=== PATIENT | male | born 1990 | race Caucasian/White ===

== ENCOUNTER 2020-04-06 17:14 | Outpatient (REF) | payer BC, SELFPAY | END 2020-04-06 17:15 | disposition home or self-care (01) | LOC: HO.LAB 17:14 | PROVIDERS: Visit Provider Internal Medicine | DX: Z20.822 Contact with and (suspected) exposure to COVID-19 (principal) | CPT/HCPCS: 36415; C9803; U0003 ==

== ENCOUNTER 2022-09-21 08:32 | Outpatient (REF) | payer BC, SELFPAY ==
[2022-09-21 08:42] LABS: MANUAL DIFF FLAG NO
[2022-09-21 09:16] LABS: Basophils Percent Auto 0.2 % (0-2); Eosinophils Absolute Auto 0.2 X10*3/uL (0.0-0.4); Hematocrit 45.7 % (42.0-52.0); Hemoglobin 16.1 g/dl (14.0-18.0); Imm Gran Abs Auto 0.01 X10*3/uL (0.00-0.03); Imm Gran Pct Auto 0.2 % (0.0-0.4); Lymphocytes Absolute Auto 1.6 X10*3/uL (1.2-4.9); Lymphocytes Percent Auto 24.9 % (20-40); Mean Corpuscular HGB Conc 35.2 g/dl (31.0-36.0); Mean Corpuscular Hemoglobin 29.8 pg (27.0-33.0); Mean Corpuscular Volume 84.6 fL (80.0-98.0); Mean Platelet Volume 8.9 fL (9.4-12.4); Monocytes Absolute Auto 0.5 X10*3/uL (0.1-1.2); Monocytes Percent Auto 7.1 % (2-11); Neutrophils Absolute Auto 4.1 x10*3/uL (2.0-8.3); Neutrophils Percent Auto 64.6 % (45-73); Platelet Count 163 X10*3/uL (160-400); Red Cell Distribution Width 12.2 % (11.0-16.0); White Blood Count 6.4 X10*3/uL (4.8-10.8)
[2022-09-21 09:47] LABS: Alanine Aminotransferase 26 U/L (0-40); Albumin Level 4.4 g/dL (3.5-5.0); Alkaline Phosphatase 58 U/L (39-117); Anion Gap 11 (12-20); Aspartate Amino Transferase 22 U/L (5-37); Bilirubin Total 1.5 mg/dL (0.0-1.0); Blood Urea Nitrogen 19 mg/dL (9-16); Calcium 9.5 mg/dL (8.4-10.2); Carbon Dioxide 28 mmol/L (22-29); Chloride 107 mmol/L (96-108); Cholesterol 150 mg/dL; Estimated Glomerular Filt Rate > 60; Glucose Fasting 104 mg/dL (60-99); HDL Cholesterol 42 mg/dL; LDL Cholesterol Calculated 95 mg/dl; Lipase 31 U/L (8-78); Potassium 4.7 mmol/L (3.3-5.1); Sodium 141 mmol/L (135-145); Total Protein 6.9 g/dL (6.5-8.0); Triglycerides 66 mg/dL
== END 2022-09-21 08:33 | disposition home or self-care (01) ==
LOC: HO.LAB 08:32
PROVIDERS: PCP Internal Medicine; Visit Provider Internal Medicine
DX: R10.9 Unspecified abdominal pain (principal); I25.10 Atherosclerotic heart disease of native coronary artery without angina pectoris; Z83.3 Family history of diabetes mellitus
CPT/HCPCS: 36415; 80053; 80061; 83690; 85025

== ENCOUNTER 2022-09-27 09:13 | Outpatient (REF) | payer BC, SELFPAY ==
--- NOTE | ~2022-09-27 | US_ITS ---
EXAMINATION: US ABDOMEN COMPLETE CLINICAL INFORMATION: Right upper quadrant pain. COMPARISON: None available. TECHNIQUE: Real-time imaging of the abdominal viscera. FINDINGS: PANCREAS: Normal head and body, the tail is obscured by bowel gas ABDOMINAL AORTA: Limited views of the proximal abdominal aorta are normal caliber. The mid and distal abdominal aorta are normal caliber. INFERIOR VENA CAVA: Visualized portions are normal. LIVER: Normal. The liver is normal in size. The liver contour is normal. Parenchymal echogenicity is normal. No focal hepatic lesion. There is no intrahepatic biliary duct dilatation seen. GALLBLADDER: Normal. The gallbladder is physiologically distended without evidence of stones, sludge, polyps, wall thickening or pericholecystic fluid. COMMON BILE DUCT: Normal in caliber measuring 0.2 cm in diameter. RIGHT KIDNEY: Normal. No hydronephrosis. No renal calculi or focal parenchymal lesions. The kidney measures 9.9 cm in maximum dimension. LEFT KIDNEY: Normal. No hydronephrosis. No renal calculi or focal parenchymal lesions. The kidney measures 10.0 cm in maximum dimension. SPLEEN: Normal. The spleen measures 9.2 cm in maximum dimension. FREE FLUID: None. US/US abdomen complete IMPRESSION: No abnormality demonstrated.
== END 2022-09-27 09:14 | disposition home or self-care (01) ==
LOC: HO.US 09:13
PROVIDERS: Visit Provider Internal Medicine
DX: R10.11 Right upper quadrant pain (principal)
CPT/HCPCS: 76700

== ENCOUNTER 2022-12-17 16:34 | Outpatient (REF) | payer BC, SELFPAY ==
[2022-12-17 16:50] LABS: MANUAL DIFF FLAG NO
[2022-12-17 17:28] LABS: Eosinophils Absolute Auto 0.2 X10*3/uL (0.0-0.4); Eosinophils Percent Auto 3.9 % (0-4); Hematocrit 42.5 % (42.0-52.0); Hemoglobin 15.1 g/dl (14.0-18.0); Imm Gran Abs Auto 0.01 X10*3/uL (0.00-0.03); Imm Gran Pct Auto 0.2 % (0.0-0.4); Lymphocytes Absolute Auto 1.9 X10*3/uL (1.2-4.9); Lymphocytes Percent Auto 31.3 % (20-40); Mean Corpuscular HGB Conc 35.5 g/dl (31.0-36.0); Mean Corpuscular Hemoglobin 29.5 pg (27.0-33.0); Mean Platelet Volume 8.9 fL (9.4-12.4); Monocytes Absolute Auto 0.4 X10*3/uL (0.1-1.2); Monocytes Percent Auto 7.1 % (2-11); Neutrophils Absolute Auto 3.4 x10*3/uL (2.0-8.3); Neutrophils Percent Auto 57.5 % (45-73); Platelet Count 158 X10*3/uL (160-400); Red Blood Count 5.12 X10*6/uL (4.60-5.80); Red Cell Distribution Width 11.9 % (11.0-16.0); White Blood Count 5.9 X10*3/uL (4.8-10.8)
[2022-12-17 18:25] LABS: Alanine Aminotransferase 21 U/L (0-40); Albumin Level 4.6 g/dL (3.5-5.0); Alkaline Phosphatase 61 U/L (39-117); Aspartate Amino Transferase 20 U/L (5-37); Bilirubin Direct 0.3 mg/dL (0.0-0.5); Bilirubin Total 0.8 mg/dL (0.0-1.0)
== END 2022-12-17 16:35 | disposition home or self-care (01) ==
LOC: HO.LAB 16:34
PROVIDERS: PCP Internal Medicine; Visit Provider Internal Medicine
DX: R10.11 Right upper quadrant pain (principal)
CPT/HCPCS: 36415; 80076; 85025

== ENCOUNTER → 2023-01-06 11:02 | Outpatient (REF) | payer BC, SELFPAY ==
--- NOTE | ~2023-01-06 | NM_ITS ---
EXAMINATION: BILIARY TRACT IMAGING STUDY WITH CCK CLINICAL INFORMATION: Right upper quadrant pain.. COMPARISON: No previous biliary scan is available for comparison. Abdominal ultrasound dated 09/27/2022 is available for comparison.. TECHNIQUE: Serial gamma scintillation camera images were obtained over the abdomen for a total observation period of 120 minutes following the intravenous administration of 5 mCi Tc-99m Mebrofenin. FINDINGS: There is good concentration of activity in the liver by 5 minutes post injection. Biliary activity is visualized by 10 minutes. The gallbladder is well visualized by 20 minutes. Small bowel is well visualized by 35 minutes. At 60 minutes post radiopharmaceutical injection, a 30-minute infusion of 1.6 micrograms Sincalide was then begun and an additional 40 minutes of images were obtained. There is good emptying of the gallbladder. By the end of the study there is good clearance of activity from the liver and visualization of diffuse small bowel activity. The calculated gallbladder ejection fraction is 94% (normal gallbladder ejection fraction is greater than 35%). NM/NM hepatobiliary w pharm IMPRESSION: Visualization of the gallbladder is evidence of a patent cystic duct and strong evidence against the diagnosis of acute cholecystitis. The common bile duct is patent. Gallbladder emptying and ejection fraction are normal. Liver function appears normal.
== END ==
LOC: HO.NUCMED 11:02
PROVIDERS: PCP Internal Medicine; Visit Provider Internal Medicine
DX: R10.11 Right upper quadrant pain (principal)
CPT/HCPCS: 78227; A9537; J2805

== ENCOUNTER 2023-06-19 07:18 | Outpatient (REF) | payer BC, SELFPAY ==
--- NOTE | ~2023-06-19 | CT_ITS ---
EXAMINATION: CT ABDOMEN AND PELVIS WITH CONTRAST CLINICAL INFORMATION: Right upper quadrant pain COMPARISON: 09/27/2022 ultrasound TECHNIQUE: Multidetector volumetric images were obtained from the superior aspect of the liver through the pubic symphysis following administration 85 mL of Omnipaque 350 intravenous contrast. Sagittal and coronal reformatted images were obtained on the technologist's workstation. Oral contrast: No This CT examination was performed using dose optimization techniques as appropriate, variously including the following: *Automated exposure control *Adjustment of mA and/or kV according to patient size (this includes techniques or standardized protocols for targeted exams where dose is matched to indication/reason for exam; i.e. extremities or head) *Use of iterative reconstruction technique DLP: 400 mGy-cm FINDINGS: DIRECTOR OF DIGITAL PLATFORMS: Nonobstructive bowel pattern. LUNG BASES: The visualized lung bases are unremarkable. LIVER, GALLBLADDER, AND BILIARY TREE: The liver is normal in size, shape, and attenuation. No focal hepatic lesion or biliary ductal dilatation is present. The gallbladder is unremarkable with no evidence of radiopaque gallstones, gallbladder wall thickening, or obvious pericholecystic inflammatory changes. PANCREAS: Unremarkable. SPLEEN: Prominent measuring 13.9 cm ADRENAL GLANDS: Unremarkable. KIDNEYS AND URETERS: The kidneys are normal in size, shape, and attenuation. No hydronephrosis, hydroureter, or calculi seen. No perinephric stranding. BLADDER: Unremarkable. GASTROINTESTINAL TRACT: Nondistended stomach. Nonobstructive bowel pattern. Moderate fecal retention. The ABDOMINAL WALL: No significant hernia is appreciated. LYMPH NODES: Nonspecific mesenteric lymph nodes. No pathologically retroperitoneal lymphadenopathy. VASCULAR: Unremarkable. PELVIC VISCERA: Unremarkable. OSSEOUS STRUCTURES: Unremarkable. CT/CT abdomen pelvis w IV con IMPRESSION: Mild splenomegaly. Moderate fecal retention. No acute intra-abdominal or pelvic pathology. Fleischner guidelines were followed.
[2023-06-19] MEDS: iohexoL 350 MG/ML 100 ML INFUS..BTL IV (10:24)
[2023-06-19] MEDS: Barium Sulfate Oral (Vanilla) 450 ML ORAL.SUSP 900 ML PO (10:25)
== END 2023-06-19 07:19 | disposition home or self-care (01) ==
LOC: HO.CT 07:18
PROVIDERS: PCP Internal Medicine; Visit Provider Internal Medicine Gastroenterology
DX: R10.11 Right upper quadrant pain (principal)
CPT/HCPCS: 74177; Q9967

== ENCOUNTER 2023-09-12 10:10 | Day surgery (SDC) | payer BC, SELFPAY ==
[2023-09-10 15:29] VITALS: BMI 27.4
--- NOTE | 2023-09-11 08:43 | HO.ANESPROP2 ---
HPI - Anesthesia Eval Consult details Narrative: 33yo M for Upper Endoscopy and Colonoscopy [facility] Surgical History Surgical History History of biopsy Hx of wisdom tooth extraction Social History Social History Patient Tobacco Use Status: Never used Tobacco Use of substances other than those prescribed or required for medical reasons: No Are you DNR?: No Advance Directives: No Advance Directives Information Provided: Yes Meds Allergies Allergy/AdvReac Type Severity Reaction Status Date / Time Penicillins [PENICILLINS] Allergy Unknown HIVES Verified 09/12/23 10:56 PCN Allergy Unknown hives Uncoded 06/05/15 00:00 Home Medications ?Medication ?Instructions ?Recorded ?Confirmed ?Last Taken ?Type dicyclomine 20 mg tablet 20 - 40 mg PO 09/10/23 09/10/23 Unknown History loratadine 10 mg tablet (Claritin) 10 mg PO DAILY 09/10/23 09/10/23 Unknown History Exam Height,Weight and Vital Signs: Height 5 ft 8 in Weight 81.647 kg Assessment and Plan Assessment Anesthesia Assessment: Chart Reviewed
[2023-09-12 10:57] VITALS: BMI 28.2
[2023-09-12 11:11] VITALS: BP 118/76; PULSE 80; RESP 16; TEMP 36.6; O2SAT 98
[2023-09-12] MEDS: Lactated Ringers 1,000 ML 100 ML IVCONT (11:19)
--- NOTE | 2023-09-12 11:39 | MHC.SHP ---
Pre-Procedural Eval Section A - 24 Hr Update-Section A only Date of Service: 09/12/23 The patient is an INPATIENT: No Changes since office visit: Yes Cold of Flu in the past 2 weeks, Yes New Medical Problems, Yes Changes in Medication and Yes Patient answered all questions The patient has been examined within 24 hours of the surgical procedure. The History & Physical has been completed within 30 days and I have reviewed it.: Yes Section B - Complete if H&P > 30 days Chief Complaint: Change in bowel habit,abdominal pain Allergies: Allergies Allergy/AdvReac Type Severity Reaction Status Date / Time Penicillins [PENICILLINS] Allergy Unknown HIVES Verified 09/12/23 10:56 PCN Allergy Unknown hives Uncoded 06/05/15 00:00 Plan I have reviewed the history and physical and performed a pertinent physical examination on my patient. No changes have occurred unless specified. Time Spent With Patient Time: Total time managing care of this patient today ____ minutes.
--- NOTE | 2023-09-12 12:27 | P.CONAN_ITS ---
[facility] Past Medical History Functional capacity: independent ambulation Surgical History Surgical History History of biopsy Hx of wisdom tooth extraction Social History Social History Patient Tobacco Use Status: Never used Tobacco Use of substances other than those prescribed or required for medical reasons: No Are you DNR?: No Advance Directives: No Advance Directives Information Provided: Yes Meds Allergies Allergy/AdvReac Type Severity Reaction Status Date / Time Penicillins [PENICILLINS] Allergy Unknown HIVES Verified 09/12/23 10:56 PCN Allergy Unknown hives Uncoded 06/05/15 00:00 Active Medications: Current Medications Lactated Ringer's (Lr) 1,000 mls @ 100 mls/hr IVCONT .Q10H YENIFER Last Admin: 09/12/23 11:19 Dose: 100 mls/hr Home Medications ?Medication ?Instructions ?Recorded ?Confirmed ?Last Taken ?Type dicyclomine 20 mg tablet 20 - 40 mg PO 09/10/23 09/10/23 Unknown History loratadine 10 mg tablet (Claritin) 10 mg PO DAILY 09/10/23 09/10/23 Unknown History Exam Height,Weight and Vital Signs: Height 5 ft 7 in Weight 81.76 kg Last Vital Signs Temp 97.8 F 09/12/23 11:11 Pulse 80 09/12/23 11:11 Resp 16 09/12/23 11:11 BP 118/76 09/12/23 11:11 Pulse Ox 98 09/12/23 11:11 O2 Del Method Room Air 09/12/23 11:11 Airway Mallampati Class: II TM Dist: >3cm Neck ROM: Full Heart: RRR Lungs: CTA Assessment and Plan Assessment Anesthesia Assessment: Anesthesia Plan Discussed Final Anesthetic Review ASA Class: II Final Preanesthetic Review: Meds/Allgs Chart Reviewed, Consent Obtained/Reviewed and Anes Risks/Benef Reviewed Patient Risk: Low Procedure Risk: Low Anesthetic Plan Anesthetic Plan: MAC: Disposition: Standard PACU
[2023-09-12 12:47] VITALS: BP 99/52; PULSE 75; RESP 16; TEMP 37.1; O2SAT 98
[2023-09-12 13:02] VITALS: BP 106/67; PULSE 70; RESP 18; TEMP 36.7; O2SAT 100
--- NOTE | 2023-09-12 13:10 | HO.POSTANES ---
Post Anesthesia Evaluation Post Anesthesia Evaluation Date of Service: 09/12/23 Vital Signs: Vital Signs Temp Pulse Resp BP Pulse Ox O2 Del Method 09/12/23 13:02 98.0 F 70 18 106/67 100 Room Air 09/12/23 12:47 98.7 F 75 16 99/52 L 98 Room Air 09/12/23 11:11 97.8 F 80 16 118/76 98 Room Air Anesthesia: Monitored Mental Status: Awake Pain Control: Satisfactory Nausea/Vomiting: None Hydration: Adequate Anesthesia-Related Issues: No Anes. Related Issues
--- NOTE | 2023-09-12 13:19 | OP_ITS ---
DATE OF SERVICE: 09/12/2023 SURGEON: Dada Ennis MD INDICATIONS: Abdominal pain and change in bowel habits. PREOPERATIVE DIAGNOSIS: POSTOPERATIVE DIAGNOSIS: PROCEDURE PERFORMED: Upper endoscopy with biopsy, colonoscopy to the terminal ileum with biopsy. ESTIMATED BLOOD LOSS: COMPLICATIONS: ANESTHESIA: Monitored anesthesia care. ASSISTANTS: SPECIMENS: DESCRIPTION OF PROCEDURE: A history and physical were performed. The risks and benefits of the procedure were explained to the patient and informed consent was obtained. The patient was placed in the left lateral decubitus position. The Olympus video gastroscope was introduced into the esophagus, stomach, and duodenum. Examination was performed and the scope was removed. He was repositioned for colonoscopy. A digital rectal exam was performed and was found to be normal. The Olympus pediatric video colonoscope was introduced into the rectum and advanced to the cecum. The cecum was identified by transillumination, palpation, and identification of ileocecal valve. Examination was performed and the scope was removed. He tolerated both procedures well and was returned to recovery room in stable condition. FINDINGS: Upper endoscopy: 1. Esophagus: The esophagus was normal. Biopsies were obtained from the EG junction. 2. Stomach: The stomach showed no evidence of masses, ulcers, or polyps. There was mild erythema present in the body and fundus consistent with patchy gastritis. Biopsies were obtained from the antrum to evaluate for H pylori. 3. Duodenum: The bulb and second portion were normal. Biopsies obtained. Colonoscopy: The terminal ileum was normal. This was biopsied. The visualized colonic mucosa was normal. The quality of the prep was good. Biopsies were obtained from the terminal ileum and sigmoid. Retroflexed examination showed small internal hemorrhoids. IMPRESSION: 1. Gastritis. 2. Normal colonoscopy. RECOMMENDATION: Follow up the biopsy results. MD MINH Manriquez/DENNISL / [id number]
--- OUTSIDE RECORDS SUMMARY | 2023-09-18 06:40 | XMS_ITS | Patient Health Record ---
Author Organization [facility] Address [address] [place] [address] Care Team Providers Care Hair Spring Winder Name Role Phone Navneet Wang MD Primary Care Provider Dada Zhang Jr Unavailable ALLERGIES Allergen (clinical drug ingredient) Drug/Non Drug Allergy documented on EMR Reaction Allergy Type Onset Date Status Penicillin Unknown Drug Allergy Active seasonal (uncoded) Unknown Allergy A ctive RESULTS Component Value Reference Range Notes CT abdomen pelvis w con Reviewed date:06/24/2023 04:37:16 PM Interpretation: Performing Lab: Notes/Report: [address] [address] [address] Scan Report Signed Patient: Miguel Lopez MR#: [id number] : 1990 Acct:[id number] Age/Sex: 33 / M ADM Date: 06/19/23 Loc: HO.CT Attending Dr: Dada Ennis MD Ordering Physician: Dada Ennis MD Date of Service: 06/19/23 Procedure(s): CT abdomen pelvis w IV con Accession Number(s): [id number] cc: Dada Ennis MD; Navneet Wang MD EXAMINATION: CT ABDOMEN AND PELVIS WITH CONTRAST CLINICAL INFORMATION: Right upper quadrant pain COMPARISON: 09/27/2022 ultrasound TECHNIQUE: Multidetector volumetric images were obtained from the superior aspect of the liver through the pubic symphysis following administration 85 mL of Omnipaque 350 intravenous contrast. Sagittal and coronal reformatted images were obtained on the technologist's workstation. Oral contrast: No This CT examination was performed using dose optimization techniques as appropriate, variously including the following: *Automated exposure control *Adjustment of mA and/or kV according to patient size (this includes techniques or standardized protocols for targeted exams where dose is matched to indication/reason for exam; i.e. extremities or head) *Use of iterative reconstruction technique DLP: 400 mGy-cm FINDINGS: HELPER SHEAR OPERATOR: Nonobstructive bowel pattern. LUNG BASES: The visualized lung bases are unremarkable. LIVER, GALLBLADDER, AND BILIARY TREE: The liver is normal in size, shape, and attenuation. No focal hepatic lesion or biliary ductal dilatation is present. The gallbladder is unremarkable with no evidence of radiopaque gallstones, gallbladder wall thickening, or obvious pericholecystic inflammatory changes. PANCREAS: Unremarkable. SPLEEN: Prominent measuring 13.9 cm ADRENAL GLANDS: Unremarkable. KIDNEYS AND URETERS: The kidneys are normal in size, shape, and attenuation. No hydronephrosis, hydroureter, or calculi seen. No perinephric stranding. BLADDER: Unremarkable. GASTROINTESTINAL TRACT: Nondistended stomach. Nonobstructive bowel pattern. Moderate fecal retention. The ABDOMINAL WALL: No significant hernia is appreciated. LYMPH NODES: Nonspecific mesenteric lymph nodes. No pathologically retroperitoneal lymphadenopathy. VASCULAR: Unremarkable. PELVIC VISCERA: Unremarkable. OSSEOUS STRUCTURES: Unremarkable. CT/CT abdomen pelvis w IV con IMPRESSION: Mild splenomegaly. Moderate fecal retention. No acute intra-abdominal or pelvic pathology. Fleischner guidelines were followed. Dictated By: Rosemary José MD Signed By: <Electronically signed by Rosemary José MD in OV> 06/24/23 1523 DD/ 1022 TD/TT: Insole Lip Turner: Pathology Reviewed date:09/17/2023 08:47:07 AM Interpretation: Performing Lab:[facility], [address] [place] [id number] Notes/Report: REASON FOR REFERRAL Referring Provider First Name Navneet Referring Provider Last Name Ashley Referring Provider Speciality Internal M edicine Referred Organization [facility] Referred Provider Dada Ennis Jr Referred Address [address] [place] [phone], Referred Provider Specialty Gastroentero logy General Notes Krystina Solares 023 02:16:19 PM EST > requested an o blue referral from dr wang's office for visit with Dr. Ennis on [phone] Referral Priority Routine MEDICATIONS Medication SIG (Take, Route, Fr equency, Duration) Notes Start Date End Date Status Claritin 10 MG 1 tablet Orally Once a day for 30 day(s) Active Omeprazole 20 MG 1 capsule 30 minutes before morning meal Orally Once a day for 30 day(s) 09/17/2023 Active Dicyclomine HCl 20 MG 1 tablet Orally 2- 4 times a day 05/05/2023 Active IMMUNIZATIONS Vaccine Route Administration Date Status Comme nts Influenza Unknown 01/14/2023 Administered SOCIAL HISTORY Tobacco Use: Social History Observation Description Date Details (start date - stop date) Never Smoker NA - NA Sex Assigned At : Social History Observation Description Sex Assigned At Unknown Tobacco Use/Smoking Question Answer Notes Patient is a nonsmoker Alcohol Screen Question Answer Notes Did you have a drink contain ing alcohol in the past year? Yes How often did you have a dri nk containing alcohol in the past year? 2 to 4 times a month (2 points) How many drinks did you have on a typical day when you were drinking in the past year? 1 or 2 drinks (0 point) How often did you have 6 or more drinks on one occasion in the past year? Never (0 point) Points 2 Interpretation Negative PROBLEMS Problem Type ICD Code Onset Dates Problem Status W/U Status Risk SNOMED Code Notes Problem RUQ pain (R10.11) Active confirmed 986574163 Problem Abdominal pain, unspecified abdominal location (R10.9) Active confirmed 44751205 Problem Change in bowel habits (R19.4) Active confirmed 43015401 VITAL SIGNS Temperature 99.1 degrees Fahrenheit 05/05/2023 Blood pressure diastolic 00 mm Hg 08/28/2023 Height 5 ft 8 in in 08/28/2023 Blood pressure systolic 00 mm Hg 08/28/2023 Weight 180 lbs 08/28/2023 BMI 27.37 kg/m2 08/28/2023 Encounters Encounter Location Date Provider Diagnosis [facility] [place] Outpatient [address], [place] [phone] 09/12/2023 Dada Ennis Jr [facility] [address] [place] [address] 08/28/2023 Dada Ennis Jr Abdominal pain, unspecified abdominal location R10.9 and Change in bowel habits R19.4 [facility] [address] [place] [address] 05/05/2023 Dada Ennis Jr RUQ pain R10.11 [facility] [address] [place] [phone] 05/05/2023 Dada Ennis Jr [facility] [address] [place] [phone] 06/24/2023 Dada Ennis Jr [facility] [address] [place] [address] 09/15/2023 Dada Ennis Jr [facility] [address] [place] [phone] 09/17/2023 Dada Ennis Jr ASSESSMENTS Encounter Date Diagnosis Assessment Notes Treatment Notes Treatment Clinical Notes 08/28/2023 Change in bowel habits (ICD-10 - R19.4) 08/28/2023 Abdominal pain, unspecified abdominal location (ICD-10 - R10.9) Daily bowel care program material was printed 05/05/2023 RUQ pain (ICD-10 - R10.11) PLAN OF TREATMENT Pending Test Test Name Order Date CT ABD & PELVIS WITH CONTRAST 05/05/2023 Future Test Test Name Order Date UPPER GI ENDOSCOPY 08/28/2023 COLONOSCOPY 08/28/2023 Next Appt Details Provider Name:Dada navas Jr, 01/29/2024 03:35:00 PM, [address], [address], [place], [address], Insurance Providers Payer Name Payer Address Payer Phone Subscriber Number Group Number Insured Name Patient Relationship to Insured Coverage Start Date Coverage End Date [facility] [employer] CLAIM[employer] [address] [place] [address] [id number] MIGUEL LOPEZ Self - patient is the insured MEDICAL (GENERAL) HISTORY Medical History History ICD Code Denies ME,DM,CVA,Lung disease,renal dise ase Surgical History Surgery Date(Month/Year) wisdom teeth 2009 skin biopsies 2003,2007
== END 2023-09-12 13:32 | disposition home or self-care (01) ==
PROVIDERS: PCP Internal Medicine; Visit Provider Internal Medicine Gastroenterology
PROC: (CPT 45380; principal; 2023-09-12 12:20)
DX: R19.4 Change in bowel habit (principal); K64.8 Other hemorrhoids; R10.9 Unspecified abdominal pain; K29.50 Unspecified chronic gastritis without bleeding; Z79.899 Other long term (current) drug therapy; Z88.0 Allergy status to penicillin
CPT/HCPCS: 45380; 43239; 88305; 88313; 88342; J2704

== ENCOUNTER 2023-10-18 08:00 | Outpatient (REF) | payer BC, SELFPAY ==
[2023-10-18 08:23] LABS: MANUAL DIFF FLAG NO
[2023-10-18 08:51] LABS: Basophils Percent Auto 0.4 % (0-2); Eosinophils Absolute Auto 0.3 X10*3/uL (0.0-0.4); Eosinophils Percent Auto 6.8 % (0-4); Hematocrit 41.5 % (42.0-52.0); Hemoglobin 14.7 g/dl (14.0-18.0); Imm Gran Abs Auto 0.01 X10*3/uL (0.00-0.03); Imm Gran Pct Auto 0.2 % (0.0-0.4); Lymphocytes Absolute Auto 1.4 X10*3/uL (1.2-4.9); Lymphocytes Percent Auto 30.7 % (20-40); Mean Corpuscular HGB Conc 35.4 g/dl (31.0-36.0); Mean Corpuscular Hemoglobin 29.4 pg (27.0-33.0); Mean Platelet Volume 8.6 fL (9.4-12.4); Monocytes Absolute Auto 0.3 X10*3/uL (0.1-1.2); Monocytes Percent Auto 7.2 % (2-11); Neutrophils Absolute Auto 2.5 x10*3/uL (2.0-8.3); Neutrophils Percent Auto 54.7 % (45-73); Platelet Count 151 X10*3/uL (160-400); Red Cell Distribution Width 12.2 % (11.0-16.0); White Blood Count 4.6 X10*3/uL (4.8-10.8)
[2023-10-18 09:29] LABS: Alanine Aminotransferase 17 U/L (0-40); Albumin Level 4.5 g/dL (3.5-5.0); Alkaline Phosphatase 57 U/L (39-117); Anion Gap 12 (12-20); Aspartate Amino Transferase 17 U/L (5-37); Bilirubin Total 0.8 mg/dL (0.0-1.0); Blood Urea Nitrogen 13 mg/dL (9-16); Calcium 9.8 mg/dL (8.4-10.2); Carbon Dioxide 28 mmol/L (22-29); Chloride 106 mmol/L (96-108); Cholesterol 155 mg/dL (<200); Estimated Glomerular Filt Rate > 60; Glucose Fasting 104 mg/dL (60-99); HDL Cholesterol 39 mg/dL (>40); LDL Cholesterol Calculated 103 mg/dL (<100); Potassium 3.9 mmol/L (3.3-5.1); Sodium 142 mmol/L (135-145); Total Protein 6.6 g/dL (6.5-8.0); Triglycerides 65 mg/dL (<150)
== END 2023-10-18 08:01 | disposition home or self-care (01) ==
LOC: HO.LAB 08:00
PROVIDERS: PCP Internal Medicine; Visit Provider Internal Medicine
DX: K29.70 Gastritis, unspecified, without bleeding (principal); Z82.49 Family history of ischemic heart disease and other diseases of the circulatory system; Z83.3 Family history of diabetes mellitus
CPT/HCPCS: 36415; 80053; 80061; 85025

== ENCOUNTER 2024-09-17 15:57 | Outpatient (AMB) | payer BC, SELFPAY ==
--- NOTE | 2024-09-17 16:00 | A.OFFPC_ITS ---
Vital Signs 09/17/24 16:08 Height 5 ft 7 in Weight 86.183 kg BMI 29.8 BP 116/68 Pulse 97 Pulse Source Pulse Oximeter Temp 97.8 F Pulse Oximetry (%) 98 Oxygen Delivery Method Room Air Intake Visit Reasons: Annual [employer] Application Developer Required: No Accompanied by: Self / Same As Patient Allergies Penicillins (PENICILLINS) Allergy (Unknown, Verified 09/17/24 16:06) HIVES Seasonal Allergies Allergy (Verified 09/17/24 16:06) Unknown PCN Allergy (Unknown, Uncoded 06/05/15 00:00) hives Medication List - Last Reconciled 09/17/24 by PALOMA Vera dicyclomine 20 - 40 mg PO loratadine (Claritin) 10 mg PO DAILY HPI HPI Comments History of Present Illness Details 34-year-old male with history of chronic right upper quadrant pain presents to t he office today for annual physical exam. He currently lives at home with his and pets. 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 He works out regularly with weight lifting and follows a healthy diet, tracking macros and calories. Rare alcohol use, never smoked tobacco. No illicit drug use. He does report that he is taking 4 g creatinine daily along with glutamine 2 g daily. Denies any testosterone use. Chronic right upper quadrant soreness-has had negative HIDA scan (12/2022) and CT abdomen/pelvis which showed mild splenomegaly and moderate fecal retention b ut no other intra-abdominal or pelvic pathology (05/2023). Followed with Dr. Ennis who started him on dicyclomine which has helped. He states that diet changes has also helped with bowel function. Concerns: None Health Maintenance: Colonoscopies to start at age 43 Past medical, family, social, surgical history reviewed ROS: General: No fevers, malaise, unintentional weight loss HEENT: No blurred vision, diplopia. No sore throat, nasal congestion, rhinorrhea, sinus pain, ear pain Neck - no adenopathy Cardiovascular: No chest pain, palpitations, or leg edema Respiratory: No shortness of breath, wheezing, cough GI: No abdominal pain, nausea, vomiting, diarrhea, constipation, melena, hematochezia : No dysuria, hematuria, increased urinary frequency, decreased urinary output. No penile discharge, testicular pain or swelling MSK: No myalgia, back pain, arthralgias Neuro: No headaches, weakness, paresthesias Psych: no depression/anxiery. No AH/VH. No SI/HI Skin: No rashes or lesions EXAM: Constitutional - Awake and Alert, No apparent distress Eyes - PERRLA, EOMI. Anicteric Nose- septum midline, nares clear, no sinus tenderness Mouth/throat- mucosa moist, tongue and uvula midline, no erythema/edema or tonsillar adenopathy. Neck-trachea midline, thyroid symmetric without palpable nodules, no adenopathy Cardiovascular - S1S2, RRR, No edema Respiratory - Normal lung expansion, Normal respiratory effort, No respiratory distress, CTA bilaterally Gastrointestinal - NT / ND; +BS; No rebound or guarding - No CVA tenderness Extremities - no calf tenderness bilaterally, no swelling Musculoskeletal - Normal inspection, normal ROM Skin - Warm/Dry Neurological - Alert & oriented x3, CN II-XII in tact, 5/5 strength BUE and BLE Psychological - Appropriate affect [facility] Medical History (Updated 09/17/24 @ 17:06 by PALOMA Vera) Chronic right upper quadrant pain Surgical History History of biopsy Hx of wisdom tooth extraction Family History (Updated 09/17/24 @ 17:07 by PALOMA Vera) Other No significant family history Social History Alcohol intake: current Alcohol intake frequency: holidays/special occasions only Patient Tobacco Use Status: Never used Tobacco Questionnaire PHQ-9 Over the last 2 weeks, how often have you been bothered by any of the following problems? 1. Little interest or pleasure in doing things: not at all 2. Feeling down, depressed, or hopeless: not at all 3. Trouble falling or staying asleep, or sleeping too much: not at all 4. Feeling tired or having little energy: not at all 5. Poor appetite or overeating: not at all 6. Feeling bad about yourself - or that you are a failure or have let yourself or your family down: not at all 7. Trouble concentrating on things, such as reading the newspaper or watching television: not at all 8. Moving or speaking so slowly that other people could have noticed. Or the opposite - being so fidgety or restless that you have been moving around a lot more than usual: not at all 9. Thoughts that you would be better off or of hurting yourself in some way: not at all Total score: 0 Depression Screening Interpretation: Negative Depression Screening Done: Yes 65555 - PHQ-9 Billing: Yes Source: Developed by Drs. Jose Dutta, Braxton Ochoa and colleagues, with an educational abdiaziz from [employer]. Thrive Questionnaire Date Thrive assessed: 09/17/24 I am a: Patient What is your living situation today?: I have a steady place to live Within the past 12 months, did the food you bought not last and you didn't have the money to get more?: Never true Within the past 12 months, did you worry whether your food would run out before you got money to buy more?: Never true Do you have trouble paying for medicines?: No Do you have trouble getting transportation to medical appointments?: No Do you have trouble paying your heating and electricity bill?: No Do you have trouble taking care of your child, family member or friend?: No Do you have trouble with day-to-day activities such as bathing, preparing meals, shopping, managing finances, etc.?: No Are you currently unemployed and looking for a job?: No Are you interested in more education?: No THRIVE Score: 0 JU-7 AMB Questionnaire JU-7 Date JU - 7 assessed: 09/17/24 Feeling nervous, anxious, or on edge: 0 = Not at all Not being able to stop or control worryin = Not at all Worrying too much about different things: 0 = Not at all Trouble relaxin = Not at all Being so restless that it is hard to sit still: 0 = Not at all Becoming easily annoyed or irritable: 0 = Not at all Feeling afraid as if something awful might happen: 0 = Not at all Total JU-7 score (0-4 normal; 5-9 mild; 10-14 moderate; 15-21 severe): 0 Source: Developed by Drs. Jose Dutta, Braxton Ochoa and colleagues, with an educational abdiaziz from [employer]. JU-7 Assessment Billing JU-7 Assessment Tool: JU-7 Assessment 44458 Physical exam (Primary Care) Vital Signs: Last Vital Signs Temp 97.8 F 09/17/24 16:08 Pulse 97 09/17/24 16:08 BP 116/68 09/17/24 16:08 Pulse Ox 98 09/17/24 16:08 Oxygen Delivery Method Room Air 09/17/24 16:08 BMI result Body Mass Index 29.8 Tobacco/Smoking Status: Tobacco use Status Patient Tobacco Use Status Never used Tobacco 09/17/24 16:03 PHQ-9: PHQ-9 Score PHQ-9: Total score 0 09/17/24 16:13 Depression Screening Interpretation: Negative Thrive Assessment: Date of Thrive Assessment Date Thrive assessed 09/17/24 09/17/24 16:15 Coding Level of Care Code New Pt Prev Care 18-39yr(76517 Diagnoses Encounter for routine history and physical examination Z00.00 Chronic right upper quadrant pain R10.11; G89.29 Additional Codes JU-7 Assessment Billing - JU-7 Assessment Tool: JU-7 Assessment 24213 ([id number]) PHQ-9 - 13474 - PHQ-9 Billing: Yes ([id number]) Assessment & Plan Assessment & Plan (1) Encounter for routine history and physical examination: Code(s): Z00.00 - Encounter for general adult medical examination without abnormal findings Plan: 34 year old male presenting for annual exam. Plan as below (2) Chronic right upper quadrant pain: Code(s): R10.11 - Right upper quadrant pain; G89.29 - Other chronic pain Category: Medical Plan: Stable. Continue with dicyclomine and avoidance of triggering food items. Follow-up with gastroenterology as needed Plan Routine screening labs as ordered below Continue with screening colonoscopies and PSA Continue following for annual skin exams and use sun protection Annual eye exams Wear seat belt in car Recommend regular exercise and healthy diet Follow up in 1 year for annual exam or as needed Orders: Orders Vitamin D 25-OH Total Today Z00.00 - Encounter for general adult medical examination without abnormal findings Basic Metabolic Panel Today Z00.00 - Encounter for general adult medical examination without abnormal findings Complete Blood Count Auto Diff Today Z00.00 - Encounter for general adult medical examination without abnormal findings Lipid Panel Today Z00.00 - Encounter for general adult medical examination without abnormal findings Liver Panel Today Z00.00 - Encounter for general adult medical examination without abnormal findings TSH reflex Free T4 Today Z00.00 - Encounter for general adult medical examination without abnormal findings
[2024-09-17 16:08] VITALS: BP 116/68; PULSE 97; TEMP 36.6; O2SAT 98; BMI 29.8
== END 2024-09-17 16:41 | disposition home or self-care (01) ==
LOC: HO.HMCHD 15:58
PROVIDERS: PCP Physician Assistant; Visit Provider Physician Assistant
DX: Z00.00 Encounter for general adult medical examination without abnormal findings (principal); R10.11 Right upper quadrant pain; G89.29 Other chronic pain

== ENCOUNTER → 2024-09-17 15:57 | Outpatient (BNVA) | payer BC, SELFPAY | PROVIDERS: PCP Physician Assistant; Visit Provider Physician Assistant | DX: Z00.00 Encounter for general adult medical examination without abnormal findings (principal); G89.29 Other chronic pain; R10.11 Right upper quadrant pain; Z13.30 Encounter for screening examination for mental health and behavioral disorders, unspecified; Z13.31 Encounter for screening for depression | CPT/HCPCS: 96127 ==

== ENCOUNTER 2024-09-18 07:20 | Outpatient (REF) | payer BC, SELFPAY ==
--- OUTSIDE RECORDS SUMMARY | 2024-09-18 07:22 | XMS_ITS | Patient Health Record ---
Author Organization [facility] Address [address] [place] [address] Care Team Providers Care Director Of Anesthesia Services Name Role Phone Navneet Ramirez MD Primary Care Provider Dada Zhang Jr Unavailable [phone] Allergies Allergen (clinical drug ingredient) Drug/Non Drug Allergy documented on EMR Reaction Allergy Type Onset Date Status Penicillin Unknown Drug Allergy Active seasonal (uncoded) Unknown Allergy A ctive Reason For Referral No Information Medications Medication SIG (Take, Route, Fr equency, Duration) Notes Start Date End Date Status Dicyclomine HCl 20 MG TAKE 1 TABLET ORAL LY 2-4 TIMES A DAY 30 DAYS for 90 Active Claritin 10 MG 1 tablet Orally Once a day for 30 day(s) Active Immunizations Vaccine Route Administration Date Status Comme nts Influenza Unknown 01/14/2023 Administered Social History Tobacco Use: Social History Observation Description Date Details (start date - stop date) Never Smoker NA - NA Tobacco Use/Smoking Question Answer Notes Patient is [...] Never (0 point) Points 2 Interpretation Negative Problems Problem Type SNOMED Code ICD Code Onset Dates Problem Status W/U Status Risk Notes Problem 55978142 Change in bowel habits (R19.4) Active confirmed Problem 63525886 Abdominal pain, unspecified abdominal location (R10.9) Active confirmed Problem 157172017 RUQ pain (R10.11) Active confirmed Problem 1596104 Gastritis, presence of bleeding unspecified, unspecified chronicity, unspecified gastritis type (K29.70) Active confirmed Vital Signs Blood pressure diastolic 00 mm Hg 01/29/2024 Height 5 ft 8 in in 01/29/2024 Blood pressure systolic 00 mm Hg 01/29/2024 Weight 173 lbs 01/29/2024 BMI 26.30 kg/m2 01/29/2024 Encounters Encounter Location Date Provider Diagnosis [facility] [address] [place] [id number] 01/29/2024 Dada Ennis Jr Abdominal pain, unspecified abdominal location R10.9 and Gastritis, presence of bleeding unspecified, unspecified chronicity, unspecified gastritis type K29.70 [facility] [address] [phone] 12/30/2023 Dada Ennis Jr RUQ pain R10.11 Assessments Encounter Date Diagnosis (ICD Code) Assessment Notes Treatment Notes Treatment Clinical Notes Section Notes 01/29/2024 Abdominal pain, unspecified abdominal location (ICD-10 - R10.9) Irritable bowel syndrome material was printed His abdominal pain appears most consistent with the irritable bowel syndrome. We discussed this today. He can continue dicyclomine which is currently taking a dose of 2 tablets daily. Followup will be in 12 months. His gastritis has been appropriately treated. Today's visit was 30 minutes. 01/29/2024 Gastritis, presence of bleeding unspecified, unspecified chronicity, unspecified gastritis type (ICD-10 - K29.70) His abdominal pain appears most consistent with the irritable bowel syndrome. We discussed this today. He can continue dicyclomine which is currently taking a dose of 2 tablets daily. Followup will be in 12 months. His gastritis has been appropriately treated. Today's visit was 30 minutes. 12/30/2023 RUQ pain (ICD-10 - R10.11) Plan Of Treatment Pending Test Test Name Order Date CT ABD & PELVIS WITH CONTRAST 05/05/2023 Future Test Test Name Order Date UPPER GI ENDOSCOPY 08/28/2023 COLONOSCOPY 08/28/2023 Next Appt Details Provider Name:Dada navas Jr, 01/27/2025 03:15:00 PM, [address] [place] [address], [address], [place], [address], Insurance Providers Payer Name Payer Address Payer Phone Subscriber Number Group Number Insured Name Patient Relationship to Insured Coverage Start Date Coverage End Date [facility] [employer] [address] [place] [address] [id number] [id number] MIGUEL Self - patient is the insured Medical (General) History Medical History History ICD Code EGD, 09/14, gastritis, and no H. pylori, Ac's esophagus, or celiac disease, treated with omeprazole Colonoscopy 09/14, normal, ten-year follo wup Surgical History Surgery Date(Month/Year) wisdom teeth 2009 skin biopsies 2003,2007
[2024-09-18 07:38] LABS: MANUAL DIFF FLAG NO
[2024-09-18 07:43] LABS: Basophils Percent Auto 0.2 % (0-2); Eosinophils Absolute Auto 0.2 X10*3/uL (0.0-0.4); Eosinophils Percent Auto 3.3 % (0-4); Hemoglobin 14.4 g/dl (14.0-18.0); Imm Gran Abs Auto 0.02 X10*3/uL (0.00-0.03); Imm Gran Pct Auto 0.4 % (0.0-0.4); Lymphocytes Absolute Auto 1.8 X10*3/uL (1.2-4.9); Lymphocytes Percent Auto 32.2 % (20-40); Mean Corpuscular HGB Conc 36.9 g/dl (31.0-36.0); Mean Corpuscular Hemoglobin 30.5 pg (27.0-33.0); Mean Corpuscular Volume 82.6 fL (80.0-98.0); Mean Platelet Volume 8.8 fL (9.4-12.4); Monocytes Absolute Auto 0.5 X10*3/uL (0.1-1.2); Monocytes Percent Auto 8.3 % (2-11); Neutrophils Percent Auto 55.6 % (45-73); Platelet Count 153 X10*3/uL (160-400); Red Blood Count 4.72 X10*6/uL (4.60-5.80); Red Cell Distribution Width 12.2 % (11.0-16.0); White Blood Count 5.4 X10*3/uL (4.8-10.8)
[2024-09-18 08:17] LABS: Alanine Aminotransferase 34 U/L (0-40); Albumin Level 4.2 g/dL (3.5-5.0); Alkaline Phosphatase 68 U/L (39-117); Anion Gap 10 (12-20); Aspartate Amino Transferase 35 U/L (5-37); Bilirubin Direct 0.3 mg/dL (0.0-0.5); Bilirubin Total 0.7 mg/dL (0.0-1.0); Blood Urea Nitrogen 28 mg/dL (9-16); Calcium 8.9 mg/dL (8.4-10.2); Carbon Dioxide 28 mmol/L (22-29); Chloride 106 mmol/L (96-108); Cholesterol 147 mg/dL (<200); Estimated Glomerular Filt Rate > 60; Glucose Random 105 mg/dL (60-115); HDL Cholesterol 38 mg/dL (>40); LDL Cholesterol Calculated 88 mg/dL (<100); Sodium 140 mmol/L (135-145); Total Protein 6.2 g/dL (6.5-8.0); Triglycerides 105 mg/dL (<150)
[2024-09-18 08:32] LABS: TSH reflex Free T4 1.89 uIU/mL (0.32-4.0); Vitamin D 25-OH Total 18.3 ng/mL (>30)
== END 2024-09-18 07:21 | disposition home or self-care (01) ==
LOC: HO.LAB 07:20
PROVIDERS: PCP Physician Assistant; Visit Provider Physician Assistant
DX: Z00.00 Encounter for general adult medical examination without abnormal findings (principal)
CPT/HCPCS: 36415; 80048; 80061; 80076; 82306; 84443; 85025